=== PATIENT | male | born 1985 | race Caucasian/White ===

== ENCOUNTER → 2021-08-28 09:27 | Outpatient (CLI) | payer OTHER, SELFPAY | PROVIDERS: Visit Provider Nurse Practitioner | DX: U07.1 COVID-19 (principal) | CPT/HCPCS: C9803; U0003; U0005 ==

== ENCOUNTER 2022-01-02 21:40 | Emergency (ER) | payer OTHER, SELFPAY ==
[2022-01-02 21:41] VITALS: BP 138/77; PULSE 74; RESP 17; TEMP 36.9; O2SAT 99; BMI 25.7
--- NOTE | 2022-01-02 21:49 | HMH.EDGENADL ---
ED Disposition Clinical Impression: Colitis Disposition: Home, Self-Care Condition on Discharge: Good Instructions: DI for Acute Abdominal Pain, DI for Colitis Additional Instructions: You have been evaluated for abdominal pain, diagnosed with colitis. Please follow bland diet, clear liquids. Take Zofran for nausea. Bentyl for cramps. Follow-up with your primary care doctor in 1 to 2 days for symptom recheck. Return to the emergency department at once for any new or worsening symptoms, pain, uncontrolled vomiting, other concerns. Prescriptions: Dicyclomine HCl 20 mg PO Q6 PRN #12 tab PRN Reason: Cramping Transmission Status: Pending to [facility] [employer] ondansetron HCL [Ondansetron 4mg tab*] 4 mg PO Q6 PRN #12 tab PRN Reason: Vomiting Transmission Status: Pending to [facility] [employer] Forms: Work/School Release Time of Disposition: 23:30 - Critical Care Critical Care Time: No Attestation: On , the high probability of a clinically significant, sudden or life threatening deterioration of the following system(s) required my full and direct attention, intervention and personal management. The time I documented below is in addition to time spent performing reported procedures but includes the following listed in this critical care notation. Medical Decision Making - Medical Records Medical records reviewed: Yes: I reviewed the patient's medical records. - Dane Inquiry Pt receiving controlled substance: No Vital Signs: 01/02/22 21:41 01/02/22 22:51 01/02/22 23:00 Temperature 98.5 F Temperature Source Oral Pulse Rate 65 63 Pulse Rate [Right] 74 Respiratory Rate 17 Blood Pressure 119/61 117/62 Blood Pressure [Right Arm] 138/77 Blood Pressure Mean [Right Arm] 97 Blood Pressure Source [Right Arm] Automatic Cuff 02 Sat by Pulse Oximetry 99 97 99 Oxygen Delivery Method Room Air Room Air Room Air - Lab Data Lab Results 01/02/22 21:54: WBC 10.1, RBC 5.76, Hgb 17.4, Hct 52.7 H, MCV 91.5, MCH 30.2, MCHC 33.0, RDW 12.6, Plt Count 217, MPV 8.8, Neut % (Auto) 88.3 H, Lymph % (Auto) 4.3 L, [place] % (Auto) 3.9, Eos % (Auto) 1.0, Baso % (Auto) 2.6 H, Neut # (Auto) 9.0 H, Lymph # (Auto) 0.4 L, [place] # (Auto) 0.4, Eos # (Auto) 0.1, Baso # (Auto) 0.3 H, Total Counted 100, Neutrophils % (Manual) 86 H, Lymphocytes % (Manual) 12, Monocytes % (Manual) 2, Platelet Estimate Normal, RBC Morphology Not Reportable, Hypochromasia 1+ 01/02/22 21:54: Sodium 136, Potassium 3.8, Chloride 97 L, Carbon Dioxide 30, Anion Gap 12.8, BUN 19, Creatinine 1.00, Estimated Creat Clear 127, Estimated GFR 86, Est GFR ( Amer) 103, Glucose 114 H, Calcium 9.5, Total Bilirubin 0.7, AST 35, ALT 29, Alkaline Phosphatase 98, Total Protein 7.6, Albumin 4.6, Globulin 3.0, Albumin/Globulin Ratio 1.5, Lipase 168 01/02/22 21:54: SARS-CoV-2 (PCR) Not detected, Influenza A Untype (PCR) Not detected, Influenza Type B (PCR) Not detected 01/02/22 22:03: Urine Color Yellow, Urine Appearance Clear, Urine pH 6.0, Ur Specific [place] 1.025, Urine Protein Negative, Urine Glucose (UA) Negative, Urine Ketones 2+, Urine Blood Trace-l, Urine Nitrate Negative, Urine Bilirubin Negative, Urine Urobilinogen 0.2, Ur Leukocyte Esterase Negative, Urine RBC Occasional, Urine WBC Occasional, Urine Bacteria Trace Result diagrams: 01/02/22 21:54 01/02/22 21:54 Orders (Tests/Meds): ED MEDICATIONS Generic Name Dose Route Start Last Admin Trade Name Freq PRN Reason Stop Dose Admin Sodium Chloride 1,000 mls @ 999 mls/hr 01/02/22 22:00 01/02/22 22:05 Sod Chlor 0.9% 1000ml Bag IV 01/02/22 23:00 999 mls/hr .Q1H1M MICA Administration Tetracycl/Hydrocort/Nystatin/Diphen 15 ml 01/03/22 09:00 Magic Mouthwash 240ml Bottle PO 02/02/22 08:59 QID MICA Discontinued Medications Generic Name Dose Route Start Last Admin Trade Name Freq PRN Reason Stop Dose Admin Iopamidol 75 ml 01/02/22 22:44 01/02/22 22:45 Iopamidol-370 (76%);100ml B
[2022-01-02 22:01] LABS: Coronavirus 19, PCR Not Detected (NotDetected); Influenza A, PCR Not Detected (NotDetected); Influenza B, PCR Not Detected (NotDetected)
[2022-01-02 22:02] LABS: Basophils # 0.3 K/mm3 (0-0.2); Basophils % 2.6 % (0.1-2.0); Eosinophils # 0.1 K/mm3 (0.0-0.4); Hematocrit 52.7 % (42.0-52.0); Hemoglobin 17.4 g/dL (14.1-18.0); Lymphocytes # 0.4 K/mm3 (0.7-4.5); Lymphocytes % 4.3 % (10-50); Mean Corpuscular Hemoglobin 30.2 pg (27.0-31.2); Mean Corpuscular Volume 91.5 fl (80-94); Mean Platelet Volume 8.8 fl (7.4-10.4); Monocytes # 0.4 K/mm3 (0.1-1.0); Monocytes % 3.9 % (1.7-9.3); Neutrophils % 88.3 % (37.0-80.0); Platelet Count 217 K/mm3 (142-424); Red Blood Count 5.76 M/mm3 (4.60-6.20); Red Cell Distribution Width 12.6 % (11.5-17.5); White Blood Count 10.1 K/mm3 (4.8-10.8)
[2022-01-02 22:05] LABS: MANUAL DIFFERENTIAL MANUAL DIFFERENTIAL (MANUAL DIFF)
[2022-01-02 22:06] LABS: Chloride 97 mmol/L (98-107); Potassium 3.8 mmoL/L (3.5-5.1); Sodium 136 mmol/L (136-145)
[2022-01-02 22:07] LABS: Microscopic, Urine URINE MICROSCOPIC (MICROSCOPIC)
[2022-01-02 22:09] LABS: Alanine Aminotransferase 29 U/L (12-78); Albumin Level 4.6 g/dl (3.5-5.0); Albumin/Globulin Ratio 1.5 (1.1-1.8); Alkaline Phosphatase 98 U/L (38-126); Anion Gap 12.8 mEq/L (5-15); Aspartate Amino Transferase 35 U/L (17-59); Bilirubin,Total 0.7 mg/dl (0.2-1.3); Blood Urea Nitrogen 19 mg/dl (9-20); Calcium 9.5 mg/dl (8.4-10.2); Carbon Dioxide 30 mmol/L (22.0-30.0); Creatinine Clearance Estimated 127 mL/min (50-200); Estimated Glomerular Filt Rate 86 ml/min (>60); GFR (African American) 103 ML/MIN (>60); Glucose 114 mg/dl (74-100); Lipase 168 U/L (23-300); Total Protein,Serum 7.6 g/dl (6.3-8.2)
[2022-01-02 22:13] LABS: Appearance,Urine CLEAR (Clear); Bilirubin,Urine Negative (Negative); Blood, Urine TRACE-L (Negative); Color,Urine YELLOW (Yellow); Glucose,Urine (UA) Negative (Negative); Ketones,Urine 2+ (Negative); Leukocyte Esterase,Urine Negative (Negative); Nitrate,Urine Negative (Negative); Protein,Urine Negative (Negative); Specific Gravity, Urine 1.025 (1.005-1.030); Urobilinogen,Urine 0.2 EU/dl (0.2)
[2022-01-02 22:22] LABS: Hypochromasia 1+; Lymphocytes % 12 % (10-50); Monocytes % 2 % (2-9); Neutrophils % 86 % (42-76); Platelet Estimate Normal; Total Cells Counted 100
--- NOTE | 2022-01-02 22:27 | CT_ITS ---
PROCEDURE INFORMATION: Exam: CT Abdomen And Pelvis With Contrast Exam date and time: 01/02/2022 10:36 PM Age: 36 years old Clinical indication: Nausea and vomiting; Abdominal pain; Additional info: Abdominal pain, vomiting TECHNIQUE: Imaging protocol: Computed tomography of the abdomen and pelvis with contrast. Radiation optimization: All CT scans at this facility use at least one of these dose optimization techniques: automated exposure control; mA and/or kV adjustment per patient size (includes targeted exams where dose is matched to clinical indication); or iterative reconstruction. Contrast material: ISOVUE; Contrast volume: 75 ml; Contrast route: IV; COMPARISON: No relevant prior studies available. FINDINGS: Liver: Normal. No mass. Gallbladder and bile ducts: Normal. No calcified stones. No ductal dilation. Pancreas: Normal. No ductal dilation. Spleen: Normal. No splenomegaly. Adrenal glands: Normal. No mass. Kidneys and ureters: Normal. No hydronephrosis. Stomach and bowel: Wall thickening of the rectosigmoid colon and descending colon likely reflecting colitis. No small bowel obstruction. Appendix: No evidence of appendicitis. Intraperitoneal space: Unremarkable. No free air. No significant fluid collection. Vasculature: Unremarkable. No abdominal aortic aneurysm. Lymph nodes: Unremarkable. No enlarged lymph nodes. Urinary bladder: Urinary bladder wall thickening could be due to cystitis or lack of distention. Reproductive: Unremarkable as visualized. Bones/joints: Unremarkable. No acute fracture. Soft tissues: Unremarkable. IMPRESSION: 1. Colitis of the rectosigmoid and descending colons. 2. Possible cystitis. 3. Normal appendix.
[2022-01-02 22:47] LABS: Bacteria,Urine Trace /lpf; RBC,Urine Occasional #/hpf (0-3); WBC,Urine Occasional #/hpf (0-3)
[2022-01-02 22:51] VITALS: BP 119/61; PULSE 65; O2SAT 97
[2022-01-02 23:00] VITALS: BP 117/62; PULSE 63; O2SAT 99
[2022-01-03] VITALS: BP 117/56; PULSE 56; RESP 16; TEMP 36.8; O2SAT 96
== END 2022-01-03 00:09 | disposition home or self-care (01) ==
PROVIDERS: Emergency Provider Emergency Medicine
DX: K52.89 Other specified noninfective gastroenteritis and colitis (principal); K59.00 Constipation, unspecified; D72.829 Elevated white blood cell count, unspecified; M79.10 Myalgia, unspecified site; Z20.822 Contact with and (suspected) exposure to COVID-19
CPT/HCPCS: 74177; 80053; 81001; 83690; 85007; 85025; 96374; 96375; 99285; C9803; J2405; Q9967; U0003; U0005

== ENCOUNTER 2022-01-24 14:56 | Emergency (ER) | payer OTHER, SELFPAY ==
[2022-01-24 15:06] VITALS: BP 132/73; PULSE 83; RESP 18; TEMP 37.4; O2SAT 96; BMI 25.7
[2022-01-24 15:19] LABS: Influenza A, PCR Not Detected (NotDetected); Influenza B, PCR Not Detected (NotDetected)
[2022-01-24 15:49] LABS: Coronavirus 19, PCR Detected (NotDetected)
[2022-01-24 16:00] VITALS: BP 120/66; PULSE 64; RESP 18; O2SAT 97
--- NOTE | 2022-01-24 16:18 | HMH.EDGENADL ---
ED Disposition Clinical Impression: COVID-19 Disposition: Home, Self-Care Condition on Discharge: Good Instructions: DI for COVID-19 (Suspected or Confirmed ) Additional Instructions: PlentyThese follow-up with your primary care physician in 2 to 3 days for further management. You have been given Zofran for symptomatic relief. Please also take Tylenol and ibuprofen for pain control. Water and eat 3 balanced meals. Please return for chest pain, difficulty breathing or any other worsening symptoms. Prescriptions: Ondansetron [Zofran 4mg ODT] 4 mg PO TIDP PRN #30 tab PRN Reason: Nausea Transmission Status: Received by [facility] Referrals: Provider,Referral, [Primary Care Provider] - - Critical Care Critical Care Time: No Attestation: On 01/24/22, the high probability of a clinically significant, sudden or life threatening deterioration of the following system(s) required my full and direct attention, intervention and personal management. The time I documented below is in addition to time spent performing reported procedures but includes the following listed in this critical care notation. Medical Decision Making - Medical Records Medical records reviewed: Yes: I reviewed the patient's medical records. - Dane Inquiry Pt receiving controlled substance: No Vital Signs: 01/24/22 15:06 01/24/22 16:00 01/24/22 16:40 Temperature 99.4 F 98.3 F Temperature Source Oral Pulse Rate 64 66 Pulse Rate [Left Radial] 83 Respiratory Rate 18 18 16 Blood Pressure 120/66 124/66 Blood Pressure [Right Arm] 132/73 Blood Pressure Mean 78 Blood Pressure Mean [Right Arm] 92 02 Sat by Pulse Oximetry 96 97 Oxygen Delivery Method Room Air Room Air - Lab Data Lab results reviewed: Yes: I reviewed the patient's lab results. Lab Results 01/24/22 15:14: SARS-CoV-2 (PCR) Detected A, Influenza A Untype (PCR) Not detected, Influenza Type B (PCR) Not detected Orders (Tests/Meds): ED MEDICATIONS Discontinued Medications Generic Name Dose Route Start Last Admin Trade Name Freq PRN Reason Stop Dose Admin Acetaminophen 1,000 mg 01/24/22 15:09 01/24/22 15:16 Acetaminophen 500mg Tab PO 01/24/22 15:10 1,000 mg ONCE ONE Administration Ondansetron HCl 4 mg 01/24/22 15:11 01/24/22 15:16 Ondansetron 4mg Odt 01/24/22 15:12 4 mg ONCE ONE Administration Ondansetron HCl 4 mg 01/24/22 16:38 01/24/22 16:39 Ondansetron 4mg Odt 01/24/22 16:39 4 mg ONCE ONE Administration Medical Decision Narrative: Vahid 36 yo presenting with 2-3 d of cough, congestion, headache and nausea. Known sick contact tested + for covid on . Patient breathing comfotably iwth no wheezin, rhales or rhonchi. No accessory muscle use or stridor. No concern for pnuemonia at this time given recent onset of symptoms and well appearing. Patient swabbed for COVID which is positive. Patient instructed to self quarantine for 5d. Patient given zofran for symptomatic relief and is discharged in stable condition. Instructed to fu w/ pcp in 2-3 d via teleheatlh as needed and to return if dyspnea, chest pain or worsening sx. General Adult HPI - General Chief complaint: Upper Respiratory Infection Stated complaint: body aches, chills, stomach ache, weakness Time Seen by Provider: 01/24/22 15:15 Mode of Arrival: Ambulatory Source of Information: Patient Limitations: No Limitations Description of Symptoms (Recalled from ER Triage Doc. by RN): pt to ed c/o nausea, body aches and a headache since last night. pt states his spouse tested + for covid x2 days ago. - History of Present Illness HPI narrative: Mr Redding is a 36 yo male w/ no significant PMH to ed c/o nausea, body aches and a headache since last night. pt states his spouse tested + for covid x2 days ago. Patient is eating less due nausea. Denies fevers, chills, bowel changes or urinary sx. No focal neurological deficits. MD complaint:
[2022-01-24 16:40] VITALS: BP 124/66; PULSE 66; RESP 16; TEMP 36.8; O2SAT 95
== END 2022-01-24 16:43 | disposition home or self-care (01) ==
PROVIDERS: Emergency Provider Student in an Organized Health Care Education/Training Program
DX: U07.1 COVID-19 (principal)
CPT/HCPCS: 99283; C9803; U0003; U0005

== ENCOUNTER 2023-02-26 11:16 | Emergency (ER) | payer OTHER, SELFPAY ==
[2023-02-26 11:18] VITALS: BP 128/59; PULSE 59; RESP 18; TEMP 36.6; O2SAT 100; BMI 25.7
--- NOTE | 2023-02-26 11:32 | EXP.UTC ---
Discharge Plan Disposition Patient Disposition: Home, Self-Care Condition: Good Prescriptions Prescriptions: New diphenhydramine HCl [Diphenhydramine HCl] 25 mg capsule 25 mg PO Q6HP PRN (Reason: Itching) Qty: 30 0RF methylprednisolone 4 mg Tablets,Dose Pack 4 mg PO DIRECTED Qty: 21 0RF No Action ondansetron 4 mg tablet,disintegrating 4 mg PO TIDP PRN (Reason: Nausea) Qty: 30 0RF prednisone 5 mg tablet 5 mg PO DIRECTED Qty: 42 0RF Rx Instructions: 4 tabs bid 2 days, 3 tabs bid 2 days, 2 tabs bid 2 days, 1 tab bid 2 days, then one a day for 2 days triamcinolone acetonide 0.1 % cream 1 applic TP TID Qty: 30 0RF fexofenadine [Jane Allergy] 180 mg tablet 180 mg PO DAILY Qty: 30 0RF atomoxetine [Strattera] 40 mg capsule 40 mg PO DAILY Qty: 30 2RF Referrals Follow up/Referrals: Donovan Burton MD [Primary Care Provider] - See instructions Activity Restrictions/Add. Instructions Additional Instructions/Restrictions: Try to identify and avoid contact with the offending substance. Don't start the oral steroids until tomorrow. The diphenhydramine (benedryl) will make you drowsy, so don't drive or operate heavy machinery after taking it. Follow up with your regular doctor. GO TO THE ER FOR ANY WORSENING SYMPTOMS OR CONCERNS Clinical Impressions Clinical Impression: Poison anthony dermatitis Instructions Patient Instructions: Contact Dermatitis, DI for Contact Dermatitis Discharge ED Provider: [place] [facility] [place] Stated complaint: Possible poison anthony rash LT eye Mode of Arrival: Ambulatory Source of Information: Patient Limitations: No Limitations Time Seen by Provider: 02/26/23 11:32 Description of Symptoms (Recalled from Triage Doc. by RN): Patient reports poison anthony rash to left eye and arms since last night. HEENT Symptoms (Recalled from RN notes): No Resp Symptoms (Recalled from RN notes): No Skin Symptoms (Recalled from RN notes): Yes MS Symptoms (Recalled from RN notes): No Functional Status (Recalled from RN notes): wnl History of Present Illness Provider Complaint: He has had a poison anthony rash on his face and hands for the past 3 days. Related Data Previous Rx's Medication Instructions Recorded fexofenadine 180 mg tablet 180 mg PO DAILY #30 tabs 03/27/22 (Jane Allergy) ondansetron 4 mg disintegrating 4 mg PO TIDP PRN Nausea #30 tabs 03/27/22 tablet prednisone 5 mg tablet 5 mg PO DIRECTED #42 tabs 03/27/22 triamcinolone acetonide 0.1 % 1 applic topical TID #30 grams 03/27/22 topical cream atomoxetine 40 mg capsule 40 mg PO DAILY #30 caps 04/27/22 (Strattera) diphenhydramine HCl 25 mg capsule 25 mg PO Q6HP PRN Itching #30 caps 02/26/23 methylprednisolone 4 mg tablets in 4 mg PO DIRECTED #21 tabs 02/26/23 a dose pack Allergies Allergy/AdvReac Type Severity Reaction Status Date / Time No Known Allergies Allergy Verified 03/27/22 13:23 Worker's Comp Is this a Worker's Comp case?: No [facility] Disclaimer: The information contained in this section may have been updated after the patient was seen, as this information can be updated by other users. Social History Smoking Status: Never smoker alcohol intake: current current occupational status: employed Travel in the last 8 weeks: None ROS Obtained: Yes All systems reviewed & no additional complaints except as documented Constitutional Constitutional: Denies chills and Denies fever(s) Eyes Eyes: Denies eye discharge ENT Ears, Nose, Mouth, and Throat: Denies dizziness, Denies otalgia and Denies sore throat Cardiovascular Cardiovascular: Denies chest pain Respiratory Respiratory: Denies shortness of breath, Denies chest congestion, Denies cough, Denies stridor and Denies wheezing Gastrointestinal Gastrointestingal: Denies nausea or vomiting Musculoskeletal Musculoskeletal: Reports system reviewed and no additional complaints, except as
[2023-02-26 11:56] VITALS: BP 128/59; PULSE 59; RESP 18; TEMP 36.6; O2SAT 100
== END 2023-02-26 11:57 | disposition home or self-care (01) ==
PROVIDERS: Emergency Provider Nurse Practitioner Family; PCP Family Medicine
DX: L23.7 Allergic contact dermatitis due to plants, except food (principal)
CPT/HCPCS: 96372; 99204; 99212; G0463

== ENCOUNTER 2023-11-08 20:00 | Outpatient (CLI) | payer OTHER, SELFPAY ==
[2023-11-08 18:25] LABS: Basophils % 0.4 % (0.1-2.0); Eosinophils # 0.1 K/mm3 (0.0-0.4); Eosinophils % 1.6 % (0.1-12.0); Hematocrit 50.1 % (42.0-52.0); Hemoglobin 16.2 g/dL (14.1-18.0); Lymphocytes # 1.9 K/mm3 (0.7-4.5); Lymphocytes % 30.5 % (10-50); Mean Corpuscular HGB Conc 32.4 g/dL (31.8-35.4); Mean Corpuscular Hemoglobin 30.2 pg (27.0-31.2); Mean Corpuscular Volume 93.2 fl (80-94); Mean Platelet Volume 10.1 fl (7.4-10.4); Monocytes # 0.4 K/mm3 (0.1-1.0); Monocytes % 6.3 % (1.7-9.3); Neutrophils # 3.9 K/mm3 (1.8-7.8); Neutrophils % 61.3 % (37.0-80.0); Platelet Count 220 K/mm3 (142-424); Red Blood Count 5.38 M/mm3 (4.60-6.20); Red Cell Distribution Width 12.9 % (11.5-17.5); White Blood Count 6.4 K/mm3 (4.8-10.8)
[2023-11-08 18:49] LABS: Alanine Aminotransferase 37 U/L (12-78); Albumin Level 4.4 g/dl (3.5-5.0); Albumin/Globulin Ratio 1.7 (1.1-1.8); Alkaline Phosphatase 88 U/L (38-126); Anion Gap 12.8 mEq/L (5-15); Aspartate Amino Transferase 34 U/L (17-59); Bilirubin,Total 0.6 mg/dl (0.2-1.3); Blood Urea Nitrogen 20 mg/dl (9-20); Calcium 9.1 mg/dl (8.4-10.2); Carbon Dioxide 29 mmol/L (22.0-30.0); Chloride 102 mmol/L (98-107); Chol/HDL Ratio 3.4 (1-3.5); Cholesterol 164 mg/dl (140-200); Estimated Glomerular Filt Rate 85 ml/min (>60); GFR (African American) 102 ML/MIN (>60); Globulin 2.6 g/dL (1.3-3.2); Glucose 86 mg/dl (74-100); HDL Cholesterol 48 mg/dl (40-60); Potassium 4.8 mmoL/L (3.5-5.1); Sodium 139 mmol/L (136-145); Triglycerides 50 mg/dl (30-150); VLDL Cholesterol 10 mg/dL (0-40)
[2023-11-08 19:00] LABS: Direct LDL Cholesterol 79.25 mg/dL (100-129)
[2023-11-08 19:07] LABS: 25-OH Vitamin D, Total 39.1 ng/mL (30-100)
[2023-11-08 19:20] LABS: Thyroid Stimulating Hormone 1.06 uIU/mL (0.465-4.68)
== END 2023-11-08 23:59 ==
LOC: LAB.DROPOF 20:01
PROVIDERS: PCP Nurse Practitioner Family; Visit Provider Nurse Practitioner Family
DX: Z79.899 Other long term (current) drug therapy (principal)
CPT/HCPCS: 80053; 80061; 82306; 84443; 85025

== ENCOUNTER 2024-03-25 10:18 | Outpatient (CLI) | payer OTHER, SELFPAY ==
[2024-03-25 18:30] LABS: Basophils % 0.4 % (0.1-2.0); Eosinophils % 0.4 % (0.1-12.0); Hematocrit 48.5 % (42.0-52.0); Lymphocytes # 1.9 K/mm3 (0.7-4.5); Lymphocytes % 23.7 % (10-50); Mean Corpuscular Volume 90.9 fl (80-94); Mean Platelet Volume 9.3 fl (7.4-10.4); Monocytes # 0.4 K/mm3 (0.1-1.0); Neutrophils # 5.7 K/mm3 (1.8-7.8); Neutrophils % 70.5 % (37.0-80.0); Platelet Count 222 K/mm3 (142-424); Red Blood Count 5.33 M/mm3 (4.60-6.20); Red Cell Distribution Width 12.8 % (11.5-17.5)
[2024-03-25 19:02] LABS: Alanine Aminotransferase 27 U/L (12-78); Albumin Level 4.1 g/dl (3.5-5.0); Albumin/Globulin Ratio 1.5 (1.1-1.8); Alkaline Phosphatase 71 U/L (38-126); Anion Gap 10.1 mEq/L (5-15); Aspartate Amino Transferase 26 U/L (17-59); Bilirubin,Total 0.3 mg/dl (0.2-1.3); Blood Urea Nitrogen 18 mg/dl (9-20); Calcium 9.4 mg/dl (8.4-10.2); Carbon Dioxide 32 mmol/L (22.0-30.0); Chloride 103 mmol/L (98-107); Estimated Glomerular Filt Rate 69 ml/min (>60); GFR (African American) 83 ML/MIN (>60); Globulin 2.8 g/dL (1.3-3.2); Glucose 126 mg/dl (74-100); Potassium 4.1 mmoL/L (3.5-5.1); Sodium 141 mmol/L (136-145); Total Protein,Serum 6.9 g/dl (6.3-8.2)
[2024-03-25 19:15] LABS: 25-OH Vitamin D, Total 45.1 ng/mL (30-100)
[2024-03-25 19:34] LABS: Thyroid Stimulating Hormone 0.68 uIU/mL (0.465-4.68)
[2024-03-25 19:53] LABS: Vitamin B12 427 pg/mL (239-931)
== END 2024-03-25 23:59 | disposition home or self-care (01) ==
LOC: LAB.DROPOF 03-26 10:18
PROVIDERS: PCP Nurse Practitioner; Visit Provider Nurse Practitioner
DX: F43.23 Adjustment disorder with mixed anxiety and depressed mood (principal)
CPT/HCPCS: 80050; 80053; 82306; 82607; 84443; 85025

== ENCOUNTER 2025-07-22 15:03 | Outpatient (CLI) | payer OTHER, SELFPAY ==
[2025-07-22 15:17] LABS: Hematocrit 46.1 % (42.0-52.0); Hemoglobin 14.7 g/dL (14.1-18.0); Immature Granulocytes % 0.2 %; Mean Corpuscular HGB Conc 31.9 g/dL (31.8-35.4); Mean Corpuscular Hemoglobin 28.7 pg (27.0-31.2); Mean Corpuscular Volume 90.0 fl (80-94); Nucleated Red Blood Cells % 0 %; Platelet Count 197 K/mm3 (142-424); Red Blood Count 5.12 M/mm3 (4.60-6.20); Red Cell Distribution Width-SD 40.3 fL; White Blood Count 4.8 K/mm3 (4.8-10.8)
[2025-07-22 15:56] LABS: Alanine Aminotransferase 33 U/L (12-78); Albumin Level 4.2 g/dl (3.5-5.0); Albumin/Globulin Ratio 1.8 (1.1-1.8); Alkaline Phosphatase 78 U/L (38-126); Anion Gap 10.5 mEq/L (5-15); Aspartate Amino Transferase 32 U/L (17-59); Bilirubin,Total 0.4 mg/dl (0.2-1.3); Blood Urea Nitrogen 21 mg/dl (9-20); Calcium 9.1 mg/dl (8.4-10.2); Carbon Dioxide 28 mmol/L (22.0-30.0); Chloride 101 mmol/L (98-107); Cholesterol 132 mg/dl (140-200); Creatinine,Serum 1.20 mg/dl (0.66-1.25); Estimated Glomerular Filt Rate 68 ml/min (>60); GFR (African American) 82 ML/MIN (>60); Globulin 2.3 g/dL (1.3-3.2); Glucose 86 mg/dl (74-100); HDL Cholesterol 58 mg/dl (40-60); Potassium 4.5 mmoL/L (3.5-5.1); Sodium 135 mmol/L (136-145); Total Protein,Serum 6.5 g/dl (6.3-8.2); Triglycerides 33 mg/dl (30-150)
[2025-07-22 16:30] LABS: Hemoglobin A1C 5.5 % (4.0-6.0)
[2025-07-22 16:31] LABS: Thyroid Stimulating Hormone 0.99 uIU/mL (0.465-4.68)
[2025-07-22 16:37] LABS: Hepatitis C Ab Qual. W/ RFX NEGATIVE (Negative)
[2025-07-24 10:08] LABS: Hepatitis B Surface Antigen Negative (Negative)
== END 2025-07-22 23:59 | disposition home or self-care (01) ==
LOC: LAB.DROPOF 15:03
PROVIDERS: PCP Nurse Practitioner; Visit Provider Nurse Practitioner
DX: Z00.00 Encounter for general adult medical examination without abnormal findings (principal); K21.9 Gastro-esophageal reflux disease without esophagitis; N52.9 Male erectile dysfunction, unspecified; Z13.220 Encounter for screening for lipoid disorders; Z13.1 Encounter for screening for diabetes mellitus; K92.1 Melena; Z11.59 Encounter for screening for other viral diseases
CPT/HCPCS: 80053; 80061; 83036; 84443; 85025; 86803; 87340; 87389